=== PATIENT | female | born 1985 | race Two or more races ===

== ENCOUNTER 2023-12-08 15:41 | Emergency (ER) | payer OTHER ==
[~2023-12-08] VITALS: Ht 154.9 cm; Wt 56.7 kg
[2023-12-08] MEDS ORDERED: KETOROLAC TROMETHAMINE 60 MG VIAL IM ONE (17:15)
[2023-12-08] MEDS ORDERED: MIRALAX510 GM PO (18:50)
[2023-12-08] MEDS ORDERED: OxyCODONE HCL/APAP UD (PERCOCET) PO ONE (19:00)
== END 2023-12-08 19:38 | disposition home or self-care (01) ==
LOC: ER 15:42
DX: K60.2 Anal fissure, unspecified (principal); K62.89 Other specified diseases of anus and rectum; K59.00 Constipation, unspecified